=== PATIENT | male | born 2000 | race Caucasian/White ===

== ENCOUNTER 2020-06-07 07:54 | Outpatient (CLI) | payer OTHER ==
[~2020-06-07] VITALS: Ht 172.8 cm; Wt 69.2 kg
[2020-06-07 08:49] VITALS: BP 142/87; PULSE 67; TEMP 98.1
[2020-06-07] MEDS ORDERED: CARDIZEM CD 12120 MG PO (08:58)
[2020-06-07] MEDS ORDERED: CEPHALEXIN500 M1 PO (09:04)
[2020-06-07 09:09] VITALS: BP 133/53; PULSE 79
--- NOTE | 2020-06-07 10:05 | NUR ---
Discharge instructions given to pt.Pt verbalizes understanding.Pt requests note for work.Note provided by Dr Dial.Pt escorted out via wheelchair at this time.
== END 2020-06-07 10:15 | disposition home or self-care (01) ==
LOC: COL.CAR 07:54
DX: R07.9 Chest pain, unspecified (principal); R00.2 Palpitations; Z87.891 Personal history of nicotine dependence; R00.1 Bradycardia, unspecified
CPT/HCPCS: 27124; C1764